=== PATIENT | male | born 2000 | race Caucasian/White ===

== ENCOUNTER 2022-05-31 12:30 | Emergency (ER) | payer BC, SELFPAY ==
[2022-05-31 12:42] VITALS: BP 148/88; PULSE 107; TEMP 37.4; O2SAT 95
--- NOTE | 2022-05-31 12:56 | ED.GENADUL_ITS ---
Discharge Plan Disposition Patient Disposition: HOME Condition: Improving Discharge Details Clinical Impression: Acute right otitis media Primary Care Provider: Adan Scott ED Provider: Declan Kline Home Meds and New Rx's Prescriptions: New amoxicillin-pot clavulanate 875-125 mg tablet 1 tab PO BID 9 Days Qty: 18 0RF Continued ibuprofen 600 MG tablet 600 mg PO Q6H PRN (Reason: Pain) Qty: 20 0RF diazepam [Valium] 5 MG tablet 5 mg PO Q8H PRN (Reason: Muscle Spasm) Qty: 12 0RF Discharge Instructions Instructions: Ear Infection (ED) Additional Instructions: Home to rest. Take antibiotics as prescribed. We will call you with your COVID result. See enclosed work note. Small, frequent sips of fluids and/or popsicles to maintain hydration. Tylenol and/or ibuprofen as needed for pain or fever. Return to the ER for any acute concerns. Medical Decision Making 22-year-old male presents from home with 3 days of cough, congestion, ear pain and sinus pressure, body ache, fever and chills. His exam does reveal a acute right otitis media. I am most concerned for COVID infection. Screening swab was sent and patient was counseled as to his pending result. I will place him on a course of Augmentin. We will hold him out of work until his COVID status is known. He is stable and appropriate for outpatient management. HPI General Mode of arrival: ambulatory . Date/Time Provider Initiated Documentation: 05/31/22 12:31 . Limitations to Documentation: no limitations . Information obtained by: patient . History of Present Illness 22 year old M presents to the emergency department with the chief complaint of Cough, congestion, ear pain, low-grade fever and chills, described as moderate, and is localized to the head and chest. Patient reports no radiation. Patient started experiencing this day(s) and it has been intermittent. No relieving factors improve symptom(s), No exacerbating factors reported . Patient notes cough and fever/chills; denies chest pain, headaches, shortness of breath and syncope. Patient did receive the following treatments prior to arrival, none Related Data Home Medications Medication Instructions Recorded Confirmed diazepam 5 mg tablet (Valium) 5 mg PO Q8H PRN Muscle Spasm #12 08/26/17 tabs ibuprofen 600 mg tablet 600 mg PO Q6H PRN Pain #20 tabs 08/26/17 amoxicillin 875 mg-potassium 1 tab PO BID 9 days #18 tabs 05/31/22 clavulanate 125 mg tablet Previous Rx's Medication Instructions Recorded diazepam 5 mg tablet (Valium) 5 mg PO Q8H PRN Muscle Spasm #12 08/26/17 tabs ibuprofen 600 mg tablet 600 mg PO Q6H PRN Pain #20 tabs 08/26/17 amoxicillin 875 mg-potassium 1 tab PO BID 9 days #18 tabs 05/31/22 clavulanate 125 mg tablet Allergies Allergy/AdvReac Type Severity Reaction Status Date / Time No Known Allergies Allergy Unverified 05/31/22 12:45 General Stated Complaint: RespSymp RANDOLPH: 3 Review of Systems Narrative: Previous COVID infection. No known sick contacts. No shortness of breath. No chest pain. See HPI. 7 systems were reviewed and otherwise negative PFSH All Active Problems (Updated 05/31/22 @ 12:59 by Declan Kline MD) Acute right otitis media (Acute) Social History Smoking/Tobacco Use Status: Never Smoking risk assessment performed?: Yes Alcohol Intake: current Alcohol Intake frequency: holidays/special occasions only Drug use: Never Substance use type: does not use Do you feel safe at home: Yes Do you feel safe in your relationship?: Yes Exam Narrative Exam Narrative: GEN: awake, alert, oriented 3. Pleasant, well groomed, interactive. HEAD: Normocephalic, atraumatic ENT: Mucous membranes moist, oropharynx erythematous without swelling or exudate, the right tympanic membrane is distended and erythematous, the left slightly erythematous, External ear exam unremarkable EYES: PERRL, EOMI NECK: Full ROM, no ASTER, no menigismus CHEST/RESP: Nontender, clear to auscultation bilateral, cough noted, no wheezing CARDIOVASCULAR: Regular with borderline tachycardia, no murmur, rub yovany. 2+ Rad pulse bilateral ABDOMEN: Soft, nontender, no mass. +Bowel sounds EXT: Full ROM, no edema, no rash Neuro: Grossly normal neurologic exam, conversant, interactive. Psych: Speech fluent, thoughts congruent, affect normal Course Vital Signs Vital signs: Vital Signs Temperature 37.4 C 05/31/22 12:42 Pulse 107 H 05/31/22 12:42 Blood Pressure 148/88 H 05/31/22 12:42 Pulse Oximetry 95 05/31/22 12:42 Temperature 37.4 C 05/31/22 12:42 Temperature Source Oral 05/31/22 12:42 Pulse 107 H 05/31/22 12:42 Respiratory Effort Short of Breath 05/31/22 12:46 Blood Pressure 148/88 H 05/31/22 12:42 Blood Pressure Position Sitting 05/31/22 12:42 Pulse Oximetry 95 05/31/22 12:42 Oxygen Delivery Method Room Air 05/31/22 12:42 Oxygen Flow Rate 0 05/31/22 12:42
[2022-05-31] MEDS: Amox. 875/Clav. 125, 2 TABS/BTL 1 TAB PO (13:11)
[2022-05-31 13:20] VITALS: BP 148/88; PULSE 107; RESP 16; TEMP 37.4; O2SAT 95
[2022-06-02 12:43] LABS: COVID-19 RT-PCR UVMMC Result Negative (Negative)
== END 2022-05-31 13:22 | disposition home or self-care (01) ==
PROVIDERS: Emergency Provider Emergency Medicine; PCP Specialist/Technologist Athletic Trainer
DX: H66.91 Otitis media, unspecified, right ear (principal); Z20.822 Contact with and (suspected) exposure to COVID-19; R05.9 Cough, unspecified
CPT/HCPCS: 99283; U0003; 99284